=== PATIENT | female | born 1985 | race Asian ===

== ENCOUNTER 2022-09-03 08:28 | Outpatient (CLI) | payer BC | END 2022-09-03 08:29 | disposition home or self-care (01) | LOC: BICRAD 08:28 | PROVIDERS: ATTEND Internal Medicine Rheumatology | DX: R05.9 Cough, unspecified (principal) | CPT/HCPCS: 71046 ==

== ENCOUNTER 2023-06-26 06:24 | Day surgery (SDC) | payer BC ==
[2023-06-25 13:31] VITALS: BMI 25.4
[2023-06-26] MEDS ORDERED: fentaNYL 50 mcg/mL 1 mL Vial ONE (06:34)
[2023-06-26] MEDS ORDERED: PROPOFOL 20 ML ONE (06:34)
[2023-06-26] MEDS ORDERED: Lidocaine 1% PF 5 ML VIAL ONE (06:44)
[2023-06-26] MEDS ORDERED: CEFAZOLIN 1 GM VIAL ONE (06:44)
[2023-06-26] MEDS ORDERED: Maxitrol 0.1% Opth Oint 3.5 GM TUBE ONE (06:44)
[2023-06-26] MEDS ORDERED: Bupivacaine 0.75% 10 ML VIAL ONE (06:44)
[2023-06-26] MEDS ORDERED: Triamcinolone 40 MG/ML VIAL ONE (06:44)
[2023-06-26] MEDS ORDERED: Lidocaine 4% PF 5 ML AMP ONE (06:44)
[2023-06-26] MEDS ORDERED: Acetylcholine 20 MG/2 ML VIAL (OR CHARGE) ONE (06:44)
[2023-06-26] MEDS ORDERED: PHENYLephrine 2.5% Ophth Soln 15 ml Bottle ONE (06:45)
[2023-06-26] MEDS ORDERED: Cyclopentolate 1% Opth Drop 2 ML BOT ONE (06:46)
[2023-06-26] MEDS ORDERED: EPINEPHrine 0.3 MG in Ophthalmic Irrigation Solution 500 ML IRR SCH (07:00)
[2023-06-26] MEDS ORDERED: Lidocaine 2% PF 5 ML VIAL ONE (07:16)
[2023-06-26 16:05] LABS: Reference Lab Name LABCORP
[2023-06-26 16:07] LABS: Reference Lab Name LABCORP
== END 2023-06-26 09:07 | disposition home or self-care (01) ==
LOC: SDC 06:24
PROVIDERS: ATTEND Ophthalmology Retina Specialist
PROC: 08T43ZZ Resection of Right Vitreous, Percutaneous Approach (ICD-10-PCS; principal; 2023-06-26)
PROC: 08NE3ZZ Release Right Retina, Percutaneous Approach (ICD-10-PCS; principal; 2023-06-26)
DX: H43.311 Vitreous membranes and strands, right eye (principal)
CPT/HCPCS: 87556; 88184; J0171; J0690; J2001; J2704; J3010; J3301; J3490

== ENCOUNTER 2024-01-29 08:38 | Day surgery (SDC) | payer BC ==
[2024-01-28 09:48] VITALS: BMI 25.7
[~2024-01-29 08:38] MED LIST: EPINEPHrine 0.3 MG in Ophthalmic Irrigation Solution 500 ML IRR SCH
[2024-01-29] MEDS ORDERED: PHENYLephrine 2.5% Ophth Soln 15 ml Bottle ONE (09:02)
[2024-01-29] MEDS ORDERED: Cyclopentolate 1% Opth Drop 2 ML BOT ONE ×2 (09:02→09:03)
[2024-01-29] MEDS ORDERED: fentaNYL 50 mcg/mL 1 mL Vial ONE ×2 (09:40→10:15)
[2024-01-29] MEDS ORDERED: Midazolam HCl 2 mg/2 ml Vial ONE (09:41)
[2024-01-29] MEDS ORDERED: CEFAZOLIN 1 GM VIAL ONE (09:59)
[2024-01-29] MEDS ORDERED: Maxitrol 0.1% Opth Oint 3.5 GM TUBE ONE (09:59)
[2024-01-29] MEDS ORDERED: Lidocaine 4% PF 5 ML AMP ONE (09:59)
[2024-01-29] MEDS ORDERED: PROPOFOL 200 MG/20 ML VIAL ONE (09:59)
[2024-01-29] MEDS ORDERED: Triamcinolone 40 MG/ML VIAL ONE (09:59)
[2024-01-29] MEDS ORDERED: Bupivacaine 0.75% 10 ML VIAL ONE (09:59)
[2024-01-29] MEDS ORDERED: Lidocaine 1% PF 5 ML VIAL ONE (09:59)
[2024-01-29] MEDS ORDERED: Dexamethasone 0.7 MG IMPLANT ONE (09:59)
[2024-01-29] MEDS ORDERED: Ondansetron PF 4 MG/2 ML Vial ONE (11:51)
[2024-01-29] MEDS ORDERED: Promethazine HCl 25 MG/ML VIAL ONE (13:21)
== END 2024-01-29 13:59 | disposition home or self-care (01) ==
LOC: SDC 08:38
PROVIDERS: ATTEND Ophthalmology Retina Specialist
PROC: 08T43ZZ Resection of Right Vitreous, Percutaneous Approach (ICD-10-PCS; principal; 2024-01-29)
DX: H40.2214 Chronic angle-closure glaucoma, right eye, indeterminate stage (principal); H21.561 Pupillary abnormality, right eye; H43.391 Other vitreous opacities, right eye
CPT/HCPCS: C1762; C1783; J0171; J0690; J2250; J2405; J2550; J2704; J3010; J3301; J3490; J7312